=== PATIENT | female | born 1995 | race Caucasian/White ===

== ENCOUNTER 2023-09-21 09:12 | Observation (INO) | payer BC, SELFPAY ==
[2023-09-21 09:22] VITALS: BP 115/65; BMI 26.5
[2023-09-21 10:01] LABS: Urine Albumin Negative (Neg - Trace); Urine Bilirubin Negative (Negative); Urine Character Slightly Cloudy (Clear); Urine Color Yellow; Urine Glucose Negative (Negative); Urine Ketone Negative (Negative); Urine Leukocyte Negative (Negative); Urine Nitrite Negative (Negative); Urine Occult Blood 4+ (Negative); Urine Urobilinogen Negative (Neg - 1+)
[2023-09-21 10:17] LABS: Urine Squamous Cell >30 /LPF (Few)
[2023-09-21 10:20] LABS: Urine Bacteria Moderate (Negative); Urine Red Blood Cell 16-20 /HPF (0-2)
== END 2023-09-21 10:14 | disposition home or self-care (01) ==
LOC: LDRP 09:12
PROVIDERS: ADMITTING PHYSICIAN Obstetrics & Gynecology
DX: O46.92 Antepartum hemorrhage, unspecified, second trimester (principal); Z3A.25 25 weeks gestation of pregnancy
CPT/HCPCS: 81003; 81015; 87086; G0378

== ENCOUNTER → 2023-10-06 07:26 | Outpatient (REF) | payer BC, SELFPAY | LOC: PNTC 07:26 | PROVIDERS: ATTENDING PHYSICIAN Obstetrics & Gynecology | DX: O34.29 Maternal care due to uterine scar from other previous surgery (principal) | CPT/HCPCS: 76816 ==

== ENCOUNTER 2023-12-24 05:33 | Inpatient (IN) | payer BC, SELFPAY ==
[2023-12-24 05:41] VITALS: BMI 32.1
[2023-12-24 05:57] VITALS: BP 123/74
[2023-12-24 06:01] LABS: Hematocrit 33.3 % (37.0-47.0); Hemoglobin 12.1 g/dL (12.0-16.0); Mean Corp Hgb Conc. 36.3 g/dL (33.0-37.0); Mean Corpuscular Hgb 32.2 pg (27.0-31.0); Mean Corpuscular Volume 88.6 fL (81.0-99.0); Mean Platelet Volume 10.1 fL (7.4-10.4); Platelet Count 214 10^3/uL (130-400); Red Blood Cell Count 3.76 10^6/uL (4.20-5.40); Red Cell Dist. Width 13.7 % (11.5-14.5); White Blood Cell Count 9.1 10^3/uL (4.8-10.8)
[2023-12-24] MEDS: BICITRA 30 ML PO (07:24)
[2023-12-24] MEDS: ANCEF IV (07:24)
[2023-12-24] MEDS: TYLENOL 1000 MG PO (07:24)
[2023-12-24] MEDS: LR 1000 IV (07:26)
[2023-12-24] MEDS: ANCEF 10 IV (07:43)
[2023-12-24] MEDS: ZOFRAN 4 MG IV (10:55)
[2023-12-24] MEDS: REGLAN 10 MG IV (11:36)
[2023-12-24] MEDS: PITOCIN 30 UNITS/NSS 500 ML IV (13:10)
[2023-12-24] MEDS: TORADOL 15 MG IV ×2 (15:12→21:05)
[2023-12-25] MEDS: TORADOL 15 MG IV ×2 (02:57→09:17)
[2023-12-25 06:05] LABS: Hematocrit 28.9 % (37.0-47.0); Hemoglobin 10.4 g/dL (12.0-16.0); Mean Corpuscular Hgb 32.6 pg (27.0-31.0); Mean Corpuscular Volume 90.6 fL (81.0-99.0); Mean Platelet Volume 10.2 fL (7.4-10.4); Platelet Count 182 10^3/uL (130-400); Red Blood Cell Count 3.19 10^6/uL (4.20-5.40); Red Cell Dist. Width 13.9 % (11.5-14.5)
--- NOTE | 2023-12-25 07:42 | W.PN.ANS.POP ---
Anesthesia Post Operative
- Anesthesia Post Op Note
Vital Signs Stable-See Nursing Note: Yes
Airway Patent: Yes
Adequate Pain Control: Yes
Change in Mental Status: No
Current Postoperative Nausea & Vomiting: No
Anesthesia Complications: No
General Anesthetic Recall: No
Unplanned Admission: No
Post Op Hydration Adequate: Yes
[2023-12-25] MEDS: PRENATAL PLUS 1 TABLET PO (09:16)
[2023-12-25] MEDS: MYLICON 80 MG PO (09:17)
[2023-12-25] MEDS: SENOKOT-S 1 TABLET PO (09:17)
[2023-12-25 11:54] LABS: Syphilis/T. pallidum Ab Reflex Negative (Negative)
[2023-12-25] MEDS: FEOSOL 325 MG PO (14:05)
[2023-12-25] MEDS: MOTRIN 600 MG PO ×2 (14:06→20:21)
[2023-12-25] MEDS: TYLENOL 650 MG PO (20:21)
[2023-12-26] MEDS: PRENATAL PLUS 1 TABLET PO (08:04)
[2023-12-26] MEDS: FEOSOL 325 MG PO (08:04)
[2023-12-26] MEDS: MOTRIN 600 MG PO (08:08)
[2023-12-26] MEDS: TYLENOL 650 MG PO (08:08)
--- NOTE | 2023-12-26 11:34 | W.DS.TRANS ---
DC Summary - [employer]
-
Discharge Instructions:
Discharge Diagnosis/Procedures delivered by csection
Diet Regular
Activity No strenuous activity
Driving Restrictions No driving for 2 weeks
Bathing Restrictions OK to Shower
Instructions:
Stand-Alone Forms: LDRP Delivery
Changes to Home Medications: No
Discharge Medications:
DC Medications w/original date entered in [facility]
prenat.vits,margie,twv-[id number] 1 tab PO DAILY Supplement 12/24/23
acetaminophen 325 mg tablet 650 mg (2 x 325 mg) PO Q4HPRN PRN mild pain #0 tabs 12/26/23
ibuprofen 600 mg tablet 600 mg PO Q6HPRN PRN cramps #0 tabs 12/26/23
Home Medication Changes
Pending Results: Yes
Total time spent discharging patient (in min): 30
== END 2023-12-26 13:02 | disposition home or self-care (01) | DRG 788 ==
LOC: LDRP 05:33
PROVIDERS: ADMITTING PHYSICIAN Obstetrics & Gynecology
PROC: 10D00Z1 Extraction of Products of Conception, Low, Open Approach (ICD-10-PCS; 2023-12-24)
PROC: 6A550ZT Pheresis of Cord Blood Stem Cells, Single (ICD-10-PCS; 2023-12-24)
DX: O34.211 Maternal care for low transverse scar from previous cesarean delivery (principal); O69.81X0 Labor and delivery complicated by cord around neck, without compression, not applicable or unspecified; Z3A.39 39 weeks gestation of pregnancy; Z37.0 Single live birth; O99.824 Streptococcus B carrier state complicating childbirth; O90.81 Anemia of the puerperium; D64.9 Anemia, unspecified; Z82.49 Family history of ischemic heart disease and other diseases of the circulatory system; Z83.2 Family history of diseases of the blood and blood-forming organs and certain disorders involving the immune mechanism
CPT/HCPCS: 36415; 85027; 86780; 86850; 86900; 86901